=== PATIENT | male | born 1930 | race Caucasian/White ===

== ENCOUNTER 2016-08-22 11:19 | Emergency (ER) | payer OTHER, BC ==
[2016-08-22 11:33] VITALS: BMI 34.2
--- NOTE | 2016-08-22 11:54 | PDOC ---
History of Present Illness - General Chief Complaint: Injury Stated Complaint: HEAD INJURY, FALL Time Seen by Provider: 08/22/16 11:24 History Source: Patient Exam Limitations: No Limitations - History of Present Illness Initial Comments: 08/22/16 11:59 86y M hx of htn, dm, afib on coumadin, presents fro evaluation s/p fall with complaint of L rib pain. Pt states after he got up on sunday (3 days ago) he felt dizzy/lightheaded and fell, stricking his L chest wall on the bed. Pt endorses pain to the area with deep breaths and with movement. Pt states he did not have any LOC, chest pain, sob, palpitations, n/v, vision changes, recent fevers, coughs/ dysuria, abd pain, back pain prior to or after the fall with the exception of the L rib area. The pt staets he did fall and strike his head 3 weeks ago, felt lightheaded/dizzy when walking in living room, but states he felt fine afterwards. pt went to his PMD dr. Garcia who referred him to the ED. Past History - Past Medical History Allergies/Adverse Reactions: Allergies Allergy/AdvReac Type Severity Reaction Status Date / Time aspirin Allergy Intermediate Itching Verified 08/22/16 11:23 Penicillins Allergy Verified 08/22/16 11:23 Home Medications: Ambulatory Orders Cholecalciferol (Vitamin D3) [Vitamin D3] 1,000 unit PO DAILY 08/22/16 Cyanocobalamin [Vitamin B12 -] 1,000 mcg PO DAILY 08/22/16 Digoxin [Lanoxin -] 0.125 mg PO DAILY 08/22/16 Enalapril Maleate 2.5 mg PO DAILY 08/22/16 Levothyroxine [Synthroid -] 50 mcg PO DAILY 08/22/16 Metoprolol Succinate [Toprol Xl -] 25 mg PO DAILY 08/22/16 Sargeant-3S/Dha/Epa/Fish Oil [Fish Oil 1,200 mg Softgel] 1 each PO BID 08/22/16 Pravastatin Sodium 20 mg PO DAILY 08/22/16 Sitagliptin Phosphate [Januvia] 50 mg PO DAILY 08/22/16 Warfarin Sodium [Coumadin] 2 mg PO DAILY 08/22/16 Cardiac Disorders: Yes (AFIB) Diabetes: Yes HTN: Yes - Psycho/Social/Smoking Cessation Hx Suicidal Ideation: No Smoking History: Former smoker Have you smoked in the past 12 months: No Information on smoking cessation initiated: No Hx Alcohol Use: No Review of Systems - Review of Systems Able to Perform ROS?: Yes Comments:: 08/22/16 12:01 Constitutional - no reported Fever, Chills, HEENT: no reported vision changes, sore throat Respiratory: no reported cough, sob, hemoptysis Cardiac: no reported chest pain, palpitations, light headedness, leg swelling Abd/GI: no reported abd pain, nausea, vomiting, blood per rectum, melena, diarrhea : no reported dysuria, frequency, discharge Musculskelatal - +L rib pain no reported back pain, joint swelling skin - no reported bruising, erythema, rash neurological: no reported headache, numbness, focal weakness, tingling, ataxia, hematologic: no reported anemia, easy bruising, easy bleeding *Physical Exam - Vital Signs Last Vital Signs Temp Pulse Resp BP Pulse Ox 99.1 F 81 18 132/76 96 08/22/16 11:20 08/22/16 11:20 08/22/16 11:20 08/22/16 11:20 08/22/16 11:20 - Physical Exam Comments: 08/22/16 12:02 GENERAL: The patient is awake, alert, and fully oriented, Nontoxic - in no acute distress. HEAD: Normocephalic, atraumatic. EYES: extraocular movements intact, sclera anicteric, conjunctiva clear. ENT: Normal voice, Moist mucous membranes. NECK: Normal range of motion, supple LUNGS: Breath sounds equal, clear to auscultation bilaterally. No wheezes, no rhonchi, no rales. +contusion to L ribs, +diffuse tenderness to anterolateral L ribs w/o crepitus HEART:irregular, normal S1 and S2 without murmur, rub or gallop. ABDOMEN: Soft, nontender, normoactive bowel sounds. No guarding, no rebound. . No CVA tenderness EXTREMITIES: +contusion on medial aspect of L upper arm without any tenderness, Normal range of motion, no edema. NEUROLOGICAL: No facial assymetry, Normal speech, PSYCH: Normal mood, normal affect. SKIN: Warm, Dry, normal turgor, no brusiing except otherwise noted above Heart Score/ECG Review - ECG Impressions Comment:: 08/22/16 12:03 Twelve-lead EKG was performed and reviewed by me. irregularly irregular rate of 75 TWI in inferolateral leads ED Treatment Course - LABORATORY CBC & Chemistry Diagram: 08/22/16 11:50 08/22/16 11:50 - RADIOLOGY Radiology Studies Ordered: Category Date Time Status HEAD CT WITHOUT CONTRAST [CT] Stat CT Scan 08/22/16 11:49 Ordered RIBS-LEFT SIDE [RAD] Stat Radiology 08/22/16 11:49 Ordered Medical Decision Making - Medical Decision Making 08/22/16 13:[address] neg for bleeding +acute 6-7th rib fx labs reviewed nremarkble UA pending pt denies being in pain will give pt incentive spirometer will dw dr. Reid 08/22/16 14:31 ua inconsistent with UTI vitalsnormal with mormal sat will dc the pt with PMD fu cosider observation but as pt has normal sats and is not in [facility] pain may be a good candidate for outpatient management will discuss with dr. Harris 08/22/16 14:[address] garcia agree with management and willf u with him as outpatient tomorrow. I discussed the physical exam findings, ancillary test results and final diagnoses with the patient. I answered all of the patient's questions. The patient was satisfied with the care received and felt comfortable with the discharge plan and treatment plan. The patient will call their primary care physician within 24 hours to arrange follow-up and will return to the Emergency Department with any new, persistent or worsening symptoms. *DC/Admit/Observation/Transfer Diagnosis at time of Disposition: Fracture of multiple ribs Qualifiers: Encounter type: initial encounter Fracture type: closed Laterality: left Qualified Code(s): S22.42XA - Multiple fractures of ribs, left side, initial encounter for closed fracture - Discharge Dispostion Disposition: HOME Condition at time of disposition: Stable Admit: No - Referrals Referrals: Erik Edgar MD [Primary Care Provider] - - Patient Instructions Printed Discharge Instructions: DI for Rib Fracture Additional Instructions: Return to the emergency department immediately with ANY new, persistent or worsening symptoms including any fevers, chills, shortness of breath, worsening pain or other concerns. Take Tylenol as needed for your pain and discomfort. Use the incentive spirometer every 30 minutes to prevent pneumonia You MUST call and follow up with your doctor tomorrow for further evaluation of your symptoms. Results were discussed with you. Please make sure your doctor reviews the results of your emergency evaluation. Print Language: TONGAN
[2016-08-22 12:08] LABS: BASOPHIL 4.8 % (0-2.0); EOSINOPHIL 4.2 % (0-4.5); MCH 31.4 pg (25.7-33.7); MCHC 33.7 g/dl (32.0-35.9); MEAN CELL VOLUME 93.4 fl (80-96); MEAN PLT VOLUME 8.2 fl (7.5-11.1); PLATELET COUNT 267 K/MM3 (134-434); RDW 14.3 % (11.9-15.9)
[2016-08-22 13:24] LABS: INR 2.16 (0.82-1.09); PROTHROMBIN TIME (PATIENT) 23.8 SEC (10.2-13.0)
[2016-08-22 13:28] LABS: ALBUMIN 3.8 g/dl (3.5-5.0); ALK PHOS 43 U/L (32-92); ANION GAP 8 (8-16); BILIRUBIN,TOTAL 0.7 mg/dl (0.2-1.0); CALCIUM 9.3 mg/dl (8.4-10.2); CO2 25 mmol/L (22-28); CREATININE 0.9 mg/dl (0.6-1.3); GLUCOSE,RANDOM 122 mg/dl (74-106); SGOT/AST 21 U/L (10-42); SGPT/ALT 18 U/L (10-40); TOT PROT 7.4 g/dl (6.4-8.3)
--- NOTE | 2016-08-22 14:20 | EKG ---
Test Reason : Blood Pressure : / mmHG Vent. Rate : 075 BPM Atrial Rate : 079 BPM P-R Int : 000 ms QRS Dur : 082 ms QT Int : 352 ms P-R-T Axes : 000 046 259 degrees QTc Int : 393 ms ATRIAL FIBRILLATION ABNORMAL ECG WHEN COMPARED WITH ECG OF 26-JUN-2007 09:48, T WAVE INVERSION NOW EVIDENT IN LATERAL LEADS Confirmed by NATHANAEL ALONSO MD ([id number]) on 08/22/2016 2:20:38 PM Referred By: MD BABB Confirmed By:NATHANAEL ALONSO MD
[2016-08-22 14:21] LABS: URINE APPEARANCE Clear; URINE BILIRUBIN Negative (NEGATIVE); URINE BLOOD Negative (NEGATIVE); URINE GLUCOSE (UA) Negative (NEGATIVE); URINE KETONE Negative (NEGATIVE); URINE LEUK ESTERASE Negative (NEGATIVE); URINE NITRITE Negative (NEGATIVE); URINE UROBILINOGEN 0.2 E.U/dl (0.2-1.0)
[2016-08-22 14:27] LABS: URINE COLOR YELLOW; URINE PROTEIN 2+ (NEGATIVE)
[2016-08-22 15:25] VITALS: BP 117/64; PULSE 78; TEMP 98
[2016-08-22 22:53] LABS: URINE RBC 0-2 /hpf (0-3); URINE WBC 0-1 (3-5)
[2016-08-22 22:54] LABS: URIC ACID CRYSTALS FEW /hpf (NONE SEEN)
== END 2016-08-22 15:10 | disposition home or self-care (01) ==
LOC: SUPCPDRO 11:19 → FER 11:19
DX: S22.42XA Multiple fractures of ribs, left side, initial encounter for closed fracture (principal); W18.30XA Fall on same level, unspecified, initial encounter; Y93.9 Activity, unspecified; Y92.9 Unspecified place or not applicable; I48.91 Unspecified atrial fibrillation; Z79.01 Long term (current) use of anticoagulants; E11.9 Type 2 diabetes mellitus without complications; I10 Essential (primary) hypertension
CPT/HCPCS: 36415; 70450-TC; 71101-TC; 80053; 81003; 81015; 85025; 85610; 93005; 99285-25